=== PATIENT | male | born 1955 | race Caucasian/White ===

== ENCOUNTER 2023-01-07 08:35 | Observation (INO) ==
[2023-01-07] MEDS ORDERED: SODIUM CHLORIDE 0.9% 1,000 ML IV STA (08:43)
--- NOTE | 2023-01-07 08:47 | Emergency Department Note ---
History of Present Illness General Chief complaint: Abdominal Pain Stated complaint: ABD PAIN Time Seen by Provider: 01/07/23 08:37 History of Present Illness Maximum Pain Intensity: 6 67-year-old male presents emergency department with an onset of diffuse abdominal pain that started at 7 PM last evening. Patient denies any nausea vomiting states some loose stools reportedly they may have been black. Patient denies any fever or anorexia. Patient did take a Tylenol last evening without any relief. Patient denies back pain denies generalized weakness malaise or recent infection. Patient states that the abdominal pain is diffuse in nature it is dull crampy and has been persistent for the past 14 hours. Home Medications Medication Instructions Recorded Confirmed Type Fish Oil ([place]-3) 1 cap PO DAILY ##0 07/30/10 History Multivitamin 1 tab PO DAILY ##0 07/30/10 History OMEPRAZOLE (PRILOSEC) 20 mg PO DAILY ##0 07/30/10 History CARVEDILOL (COREG) 6.25 mg PO BID #0 tabs 10/16/13 History FELODIPINE (PLENDIL ER) 10 mg PO DAILY #0 tabs 10/16/13 History Lisinopril/Hctz (Zestoretic 2 tabs PO DAILY #0 tabs 10/16/13 History 20MG/12.5MG) SIMVASTATIN (ZOCOR) 20 mg PO QPM #0 tabs 10/16/13 History ASPIRIN (ASPIRIN EC) 81 mg PO DAILY ##0 10/11/14 History Fluoxetine (Prozac) 40 mg PO DAILY #0 caps 10/11/14 History Allergies Allergy/AdvReac Type Severity Reaction Status Date / Time No Known Allergies Allergy Unverified 10/16/13 09:54 Past Med/Surg History Social History Smoking Status: Former smoker Preferred Language: Paraguayan Feels Safe at Home: Yes Immunizations: Past medical history is reviewed in the chart, past surgical history patient denies any abdominal surgery Review of Systems A total of 10 systems reviewed and were otherwise negative Gastrointestinal: + abdominal pain Physical Exam Vital Signs Vital Signs - 24 hr 01/07/23 08:35 01/07/23 08:50 01/07/23 08:50 Temperature 36.6 C Temperature Source Temporal Artery Scan Pulse Rate 73 66 Pulse Rate [Apical] 68 Pulse Rhythm Regular Respiratory Rate 16 13 20 Respiratory Effort / Characteristics Non-Labored Respiratory Depth Normal Blood Pressure 139/80 Blood Pressure [Right Arm] 143/82 H Blood Pressure Mean 99 Blood Pressure Mean [Right Arm] 102 Pulse Oximetry 96 94 95 Oxygen Delivery Method Room Air Room Air Sepsis Recent Fever Within 48 Hours No Sepsis New/Unexplained Change in Mental Status N/A Sepsis Action Taken by Nursing No Action Required 01/07/23 08:51 01/07/23 11:24 Temperature Temperature Source Pulse Rate 69 Pulse Rate [Apical] 64 Pulse Rhythm Respiratory Rate 16 Respiratory Effort / Characteristics Non-Labored Respiratory Depth Normal Blood Pressure Blood Pressure [Right Arm] 160/85 H Blood Pressure Mean Blood Pressure Mean [Right Arm] 110 Pulse Oximetry 96 Oxygen Delivery Method Room Air Sepsis Recent Fever Within 48 Hours Sepsis New/Unexplained Change in Mental Status Sepsis Action Taken by Nursing GENERAL: Patient is awake alert in no acute distress patient is resting comfortably and showing no signs of anxiety EYES: The conjunctivae are clear. The pupils are round and reactive. EARS, NOSE, MOUTH AND THROAT: The nose is without any evidence of any deformity. Mucous membranes are moist. Tongue is midline. NECK: The neck is nontender and supple. RESPIRATORY: Normal respiratory effort is noted there is no evidence of wheezing rhonchi or rales CARDIOVASCULAR: Regular rate and rhythm noted there no murmurs rubs or gallops normal S1 normal S2. GASTROINTESTINAL: The abdomen is soft. Abdomen is nontender. No rebound rigidity or guarding; there are bowel sounds present BACK: No midline tenderness or or step-off noted range of motion in flexion extension as well as rotation no signs of muscle spasm noted MUSCULOSKELETAL/EXTREMITIES: There is no evidence of gross deformity full range of motion is noted in the hips and shoulders. SKIN: There is no obvious evidence of any rash. There are no petechiae, pallor or cyanosis noted. NEUROLOGIC: Patient is awake alert and oriented x3 strength is symmetric Course Reevaluation(s) Reevaluation #1: Patient on repeat examination has mild tenderness in the right lower quadrant. I did speak to him about his diagnosis and the fact that the surgical team will come to evaluate him Time: 10:47 Consultations Consultation #1: Case was discussed with Andria the surgical physician assistant counsel for evaluation for appendicitis Time: 10:47 Administered Medications Piperacillin Sod/Tazobactam Sod (Zosyn) 4.5 gm in 120 mls @ 240 mls/hr IV NOW ONE Stop: 01/07/23 11:45 Last Admin: 01/07/23 11:25 Dose: 240 mls/hr Documented By: DMH Discontinued Medications Sodium Chloride (Nss 1000ml) 1,000 mls @ 999 mls/hr IV .Q1H1M STA Stop: 01/07/23 09:43 Last Admin: 01/07/23 08:54 Dose: 999 mls/hr Documented By: CHASE Cefoxitin Sodium (Mefoxin) 2,000 mg in 60 mls @ 100 mls/hr IV NOW STA Stop: 01/07/23 11:15 Last Admin: 01/07/23 11:21 Dose: Not Given Documented By: GÓMEZ Ioversol (Optiray 320 100ml) 91 ml IV ONCE ONE Stop: 01/07/23 10:08 Last Admin: 01/07/23 10:07 Dose: 91 ml Documented By: JESSICA Medical Decision Making Medical Records Attestation: I reviewed the patient's medical records. Home Medications Current Medication List: was personally reviewed by me Laboratory Data Attestation: I reviewed the patient's lab results. CBC shows a leukocytosis Metabolic panel shows a mild hyperglycemia 01/07/23 08:43 01/07/23 08:55 Lab Results 01/07/23 01/07/23 01/07/23 Range/Units 08:43 08:55 08:55 WBC 12.04 H (4.8-10.8) K/ul RBC 4.56 L (4.70-6.10) M/uL Hgb 14.1 (14.0-18.0) g/dl Hct 39.0 L (42.0-52.0) % MCV 85.5 (80.0-100.0) fL MCH 30.9 (25.0-34.0) pg MCHC 36.2 H (32.0-36.0) g/dL RDW Std Deviation 36.7 (36.4-46.3) fL RDW Coeff of [place] 11.9 (11.5-14.5) % Plt Count 221 (130-400) K/uL MPV 9.6 (9.4-12.4) fL Immature Gran % (Auto) 0.5 % Neut % (Auto) 84.7 % Lymph % (Auto) 5.3 % [place] % (Auto) 9.1 % Eos % (Auto) 0.2 % Baso % (Auto) 0.2 % Neut # (Auto) 10.20 H (1.40-6.50) K/uL Lymph # (Auto) 0.64 L (1.20-3.40) K/uL [place] # (Auto) 1.10 H (0.11-0.59) K/uL Eos # (Auto) 0.02 (0.00-0.50) K/uL Baso # (Auto) 0.02 (0.00-0.20) K/uL Immature Gran # (Auto) 0.06 (0.01-0.20) K/uL PT 10.8 (9.0-12.0) Seconds INR 1.0 (0.9-1.1) Sodium 134 L (136-145) mmol/L Potassium 3.9 (3.5-5.1) mmol/L Chloride 100 (98-107) mmol/L Carbon Dioxide 26 (21-32) mmol/L Anion Gap 8 (3-11) BUN 12 (6-23) mg/dl Creatinine 0.78 (0.6-1.4) mg/dl Est Cr Clr Drug Dosing 112.8 ml/min Est GFR ( Amer) 109.8 ml/min Est GFR (Non-Af Amer) 94.7 ml/min BUN/Creatinine Ratio 15.4 (10-20) Glucose 151 H (70-99(Fasting)) mg/dl Calcium 9.4 (8.6-10.3) mg/dl Total Bilirubin 1.1 H (0.2-1.0) mg/dl AST 19 (13-39) U/L ALT 25 (7-52) U/L Alkaline Phosphatase 73 (34-104) U/L Total Protein 7.0 (6.0-8.3) gm/dl Albumin 4.5 (3.4-5.0) gm/dl Globulin 2.5 (2.5-4.0) gm/dl Albumin/Globulin Ratio 1.8 (0.9-2) Lipase 15 (11-82) U/L Urine Color Urine Appearance (Clear) Urine pH (4.5-7.5) Ur Specific [place] (1.000-1.030) Urine Protein (Negative) Urine Glucose (UA) (Negative) Urine Ketones (Negative) Urine Blood (Negative) Urine Nitrite (Negative) Urine Bilirubin (Negative) Urine Urobilinogen (Negative) Ur Leukocyte Esterase (Negative) Blood Type Antibody Screen 01/07/23 01/07/23 Range/Units 09:24 10:25 WBC (4.8-10.8) K/ul RBC (4.70-6.10) M/uL Hgb (14.0-18.0) g/dl Hct (42.0-52.0) % MCV (80.0-100.0) fL MCH (25.0-34.0) pg MCHC (32.0-36.0) g/dL RDW Std Deviation (36.4-46.3) fL RDW Coeff of [place]ette (11.5-14.5) % Plt Count (130-400) K/uL MPV (9.4-12.4) fL Immature Gran % (Auto) % Neut % (Auto) % Lymph % (Auto) % [place] % (Auto) % Eos % (Auto) % Baso % (Auto) % Neut # (Auto) (1.40-6.50) K/uL Lymph # (Auto) (1.20-3.40) K/uL [place] # (Auto) (0.11-0.59) K/uL Eos # (Auto) (0.00-0.50) K/uL Baso # (Auto) (0.00-0.20) K/uL Immature Gran # (Auto) (0.01-0.20) K/uL PT (9.0-12.0) Seconds INR (0.9-1.1) Sodium (136-145) mmol/L Potassium (3.5-5.1) mmol/L Chloride (98-107) mmol/L Carbon Dioxide (21-32) mmol/L Anion Gap (3-11) BUN (6-23) mg/dl Creatinine (0.6-1.4) mg/dl Est Cr Clr Drug Dosing ml/min Est GFR ( Amer) ml/min Est GFR (Non-Af Amer) ml/min BUN/Creatinine Ratio (10-20) Glucose (70-99(Fasting)) mg/dl Calcium (8.6-10.3) mg/dl Total Bilirubin (0.2-1.0) mg/dl AST (13-39) U/L ALT (7-52) U/L Alkaline Phosphatase (34-104) U/L Total Protein (6.0-8.3) gm/dl Albumin (3.4-5.0) gm/dl Globulin (2.5-4.0) gm/dl Albumin/Globulin Ratio (0.9-2) Lipase (11-82) U/L Urine Color Yellow Urine Appearance Clear (Clear) Urine pH 7.0 (4.5-7.5) Ur Specific [place] 1.021 (1.000-1.030) Urine Protein Negative (Negative) Urine Glucose (UA) Negative (Negative) Urine Ketones Negative (Negative) Urine Blood Negative (Negative) Urine Nitrite Negative (Negative) Urine Bilirubin Negative (Negative) Urine Urobilinogen Negative (Negative) Ur Leukocyte Esterase Negative (Negative) Blood Type O Positive Antibody Screen NEGATIVE Imaging Data Attestation: I personally reviewed and interpreted this imaging study as follows: Radiologist's Impression: Abdomen/Pelvis CT 01/07/23 08:[address] WITH IV CONTRAST CT DOSE: 1377.49 mGy.cm HISTORY: Generalized abdominal pain. TECHNIQUE: Multiaxial CT images of the abdomen and pelvis were performed following the use of intravenous contrast. A dose lowering technique was utilized adhering to the principles of ALARA. COMPARISON STUDY: None. FINDINGS: Groundglass densities within the lungs posteriorly likely represent mild dependent change. No pneumoperitoneum. No pneumatosis. No acute fractures. There is a punctate gallstone noted. No gallbladder wall thickening. The liver, spleen, adrenal glands, pancreas, and kidneys are within normal limits. A subcentimeter hypodense lesion within the left kidney and at the right hepatic dome are technically too small to characterize but statistically represent cysts. No hydronephrosis. The main portal vein is patent. No retroperitoneal lymphadenopathy. Normal caliber abdominal aorta. There is a tiny fat-containing umbilical hernia. Small fat-containing right inguinal hernia. The bladder is unremarkable. The prostate gland is top normal in size. No pelvic free fluid or pelvic lymphadenopathy. Colonic diverticulosis. No evidence for acute diverticulitis. There is a thick-walled, fluid-filled, dilated appendix measuring up to 13 mm with periappendiceal fat stranding/edema. This is consistent with acute appendicitis. No perforation or abscess identified at this time. There is a 3 mm appendicolith within the appendix on image 230. IMPRESSION: 1. Acute appendicitis. 2. Cholelithiasis. No gallbladder wall thickening. 3. Colonic diverticulosis. 4. Additional findings as described above. ACT 112: Negative or not required by law. Electronically signed by: Nii Sims M.D. 01/07/2023 10:22 AM ECG Data Attestation: I personally reviewed and interpreted this ECG as follows: Additional Comments: EKG interpreted by me normal sinus rhythm rate of 66 normal intervals normal axis no obvious ST segment elevation or depression Telemetry was ordered by me, interpreted as normal sinus rhythm rate of 66 MDM Narrative Medical decision making differential diagnosis includes gastritis, gastroenteritis, pancreatitis, upper GI bleed, diverticulitis, bowel obstruction, constipation, electrolyte abnormality Plan is to check labs, CT, give IV fluids Patient states he takes a aspirin 3 times a week External medical records were reviewed by me Patient has appendicitis on CT, patient was started on IV antibiotics, the case was discussed with the surgical service for evaluation Impression & Plan Acute appendicitis Discharge Plan Visit Data Chief Complaint: Abdominal Pain Stated Complaint: ABD PAIN ED Provider: [place] Discharge Problem: Acute appendicitis Patient Disposition: Admitted As Inpatient Forms Stand Alone Forms: My [facility] Prescriptions Prescriptions: No Action Fish Oil ([place]-3) 1 EA capsule 1 cap PO DAILY Qty: 0 Multivitamin tablet 1 tab PO DAILY Qty: 0 OMEPRAZOLE (PRILOSEC) 20 MG CONTR REL CAP 20 mg PO DAILY Qty: 0 CARVEDILOL (COREG) 6.25 MG tablet 6.25 mg PO BID Qty: 0 FELODIPINE (PLENDIL ER) 10 MG tablet 10 mg PO DAILY Qty: 0 Lisinopril/Hctz (Zestoretic 20MG/12.5MG) tablet 2 tabs PO DAILY Qty: 0 SIMVASTATIN (ZOCOR) 20 MG tablet 20 mg PO QPM Qty: 0 ASPIRIN (ASPIRIN EC) 81 MG tablet 81 mg PO DAILY Qty: 0 Fluoxetine (Prozac) 40 MG capsule 40 mg PO DAILY Qty: 0 Referrals Referrals: Kane Soriano MD [Physician] -
[2023-01-07 09:20] LABS: Basophils # (auto) 0.02 K/uL (0.00-0.20); Basophils % (auto) 0.2 %; Eosinophils # (auto) 0.02 K/uL (0.00-0.50); Eosinophils % (auto) 0.2 %; Hemoglobin 14.1 g/dl (14.0-18.0); Immature Granulocytes # (auto) 0.06 K/uL (0.01-0.20); Immature Granulocytes % (auto) 0.5 %; Lymphocytes # (auto) 0.64 K/uL (1.20-3.40); Lymphocytes % (auto) 5.3 %; Mean Corpuscular Hemoglobin 30.9 pg (25.0-34.0); Mean Corpuscular Hgb Conc 36.2 g/dL (32.0-36.0); Mean Corpuscular Volume 85.5 fL (80.0-100.0); Mean Platelet Volume 9.6 fL (9.4-12.4); Monocytes % (auto) 9.1 %; Neutrophils % (auto) 84.7 %; Platelet Count 221 K/uL (130-400); RDW Coefficient of Variation 11.9 % (11.5-14.5); RDW Standard Deviation 36.7 fL (36.4-46.3); Red Blood Count 4.56 M/uL (4.70-6.10); White Blood Count 12.04 K/ul (4.8-10.8)
[2023-01-07 09:25] LABS: Prothrombin Time 10.8 Seconds (9.0-12.0)
[2023-01-07 09:30] LABS: Albumin Globulin Ratio 1.8 (0.9-2); Albumin Level 4.5 gm/dl (3.4-5.0); BUN Creatinine Ratio 15.4 (10-20); Bilirubin,Total 1.1 mg/dl (0.2-1.0); Calcium 9.4 mg/dl (8.6-10.3); Creatinine Clr Calc Pharmacy 112.8 ml/min; Est GFR (African American) 109.8 ml/min; Est GFR (Non-African American) 94.7 ml/min; Globulin 2.5 gm/dl (2.5-4.0); Potassium 3.9 mmol/L (3.5-5.1)
[2023-01-07] MEDS ORDERED: OPTIRAY 320 100ml IV ONE (10:07)
--- NOTE | 2023-01-07 10:24 | CT Scan Report ---
ABDOMEN AND PELVIS CT WITH IV CONTRAST CT DOSE: 1377.49 mGy.cm HISTORY: Generalized abdominal pain. TECHNIQUE: Multiaxial CT images of the abdomen and pelvis were performed following the use of intrave nous contrast. A dose lowering technique was utilized adhering to the principles of ALARA. COMPARISON STUDY: None. FINDINGS: Groundglass densities within the lungs posteriorly likely represent mild dependent change. No pneumoperitoneum. No pneumatosis. No acute fractures. There is a punctate gallstone noted. No gall bladder wall thickening. The liver, spleen, adrenal glands, pancreas, and kidneys are within normal l imits. A subcentimeter hypodense lesion within the left kidney and at the right hepatic dome are tech nically too small to characterize but statistically represent cysts. No hydronephrosis. The main port al vein is patent. No retroperitoneal lymphadenopathy. Normal caliber abdominal aorta. There is a tin y fat-containing umbilical hernia. Small fat-containing right inguinal hernia. The bladder is unremar kable. The prostate gland is top normal in size. No pelvic free fluid or pelvic lymphadenopathy. [place] ami diverticulosis. No evidence for acute diverticulitis. There is a thick-walled, fluid-filled, dila larissa appendix measuring up to 13 mm with periappendiceal fat stranding/edema. This is consistent with acute appendicitis. No perforation or abscess identified at this time. There is a 3 mm appendicolith within the appendix on image 230. IMPRESSION: 1. Acute appendicitis. 2. Cholelithiasis. No gallbladder wall thickening. 3. Colonic diverticulosis. 4. Additional findings as described above. ACT 112: Negative or not required by law. Electronically signed by: Nii Sims M.D. 01/07/2023 10:22 AM
[2023-01-07] MEDS ORDERED: cefOXitin 2,000 MG/60 ML BAG IV STA (10:40)
[2023-01-07 10:45] LABS: Appearance Urine Clear (Clear); Bilirubin Urine Negative (Negative); Blood Urine Negative (Negative); Color Urine Yellow; Glucose Urine UA Negative (Negative); Ketones Urine Negative (Negative); Leukocyte Esterase Urine Negative (Negative); Nitrite Urine Negative (Negative); Protein Urine Negative (Negative); Specific Gravity Urine 1.021 (1.000-1.030); Urobilinogen Urine Negative (Negative)
--- NOTE | 2023-01-07 10:58 | History & Physical Report ---
Date of Service January 07, 2023 Assessment & Plan (1) Acute appendicitis: Plan: This is a 67y M with a PMH of HTN, borderline DM, depression, who presents to the [facility] ED on 01/07/23 with complaints of abdominal pain that started yesterday evening. Pain mostly located in the RLQ. In the ER a CT a/p was performed that revealed a thick-walled, fluid-filled, dilated appendix measuring up to 13 mm with periappendiceal fat stranding/edema, concerning for acute appendicitis. No perforation or abscess identified at this time. There is a 3 mm appendicolith. WBC 12, Hbg 14, Cr 0.7. Vitals are stable and patient afebrile. On exam abdomen is soft with TTP in the RLQ. Exam, history, imaging all consistent with acute appendicitis. We will plan on taking the patient to the OR for a laparoscopic appendectomy today. Keep NPO with IVF and start IV abx. Will likely admit for overnight observation. History of Present Illness Primary Care Provider: Miky Phillips MD This is a 67y M with a PMH of HTN, borderline DM, depression, who presents to the [facility] ED on 01/07/23 with complaints of abdominal pain. Pain started last night mostly generalized abdomen felt like gas/bloating, now located in the RLQ. Denies fevers/chills, vomiting. + mild nausea. In the ER a CT a/p was performed that revealed a thick-walled, fluid-filled, dilated appendix measuring up to 13 mm with periappendiceal fat stranding/edema, concerning for acute appendicitis. No perforation or abscess identified at this time. There is a 3 mm appendicolith. No CP/SOB, urinary issues. Does have history of a colonoscopy. History of colon ca in grandfather. No prior abdominal surgical history. Last ate some leftovers (shrimp fettuccine) yesterday evening and had some water during the night/this AM. Allergies Allergy/AdvReac Type Severity Reaction Status Date / Time No Known Allergies Allergy Unverified 10/16/13 09:54 Home Medications Medication Instructions Recorded Confirmed Type Fish Oil ([place]-3) 1 cap PO DAILY ##0 07/30/10 History Multivitamin 1 tab PO DAILY ##0 07/30/10 History OMEPRAZOLE (PRILOSEC) 20 mg PO DAILY ##0 07/30/10 History CARVEDILOL (COREG) 6.25 mg PO BID #0 tabs 10/16/13 History FELODIPINE (PLENDIL ER) 10 mg PO DAILY #0 tabs 10/16/13 History Lisinopril/Hctz (Zestoretic 2 tabs PO DAILY #0 tabs 10/16/13 History 20MG/12.5MG) SIMVASTATIN (ZOCOR) 20 mg PO QPM #0 tabs 10/16/13 History ASPIRIN (ASPIRIN EC) 81 mg PO DAILY ##0 10/11/14 History Fluoxetine (Prozac) 40 mg PO DAILY #0 caps 10/11/14 History Past Med/Surg History Social History Smoking Status: Former smoker Preferred Language: Israeli Feels Safe at Home: Yes Review of Systems Constitutional: no fever and no chills Respiratory: no dyspnea Cardiovascular: no chest pain Gastrointestinal: + abdominal pain (RLQ), + bloating and + nausea (mild last night); no vomiting Genitourinary: no problem reported (no urinary complaints) Physical Exam Physical Exam: awake/alert, no distress Respiratory: normal respiratory effort Cardiovascular: Rate/Rhythm: regular rate and regular rhythm Gastrointestinal (Abdomen): Percussion/Palpation: + abdomen tender (ttp in the RLQ) and abdomen soft Results & Data Results & Data Vital Signs (Past 12 Hours) Vital Signs Temp Pulse Pulse Resp BP BP Pulse Ox 01/07/23 08:51 69 01/07/23 08:50 66 20 95 01/07/23 08:50 68 13 143/82 H 94 01/07/23 08:35 36.6 C 73 16 139/80 96 O2 Del Method 01/07/23 08:51 01/07/23 08:50 Room Air 01/07/23 08:50 Room Air 01/07/23 08:35 Diagnostic Findings ABDOMEN AND PELVIS CT WITH IV CONTRAST CT DOSE: 1377.49 mGy.cm HISTORY: Generalized abdominal pain. TECHNIQUE: Multiaxial CT images of the abdomen and pelvis were performed following the use of intravenous contrast. A dose lowering technique was utilized adhering to the principles of ALARA. COMPARISON STUDY: None. FINDINGS: Groundglass densities within the lungs posteriorly likely represent mild dependent change. No pneumoperitoneum. No pneumatosis. No acute fractures. There is a punctate gallstone noted. No gallbladder wall thickening. The liver, spleen, adrenal glands, pancreas, and kidneys are within normal limits. A subcentimeter hypodense lesion within the left kidney and at the right hepatic dome are technically too small to characterize but statistically represent cysts. No hydronephrosis. The main portal vein is patent. No retroperitoneal lymphadenopathy. Normal caliber abdominal aorta. There is a tiny fat-containing umbilical hernia. Small fat-containing right inguinal hernia. The bladder is unremarkable. The prostate gland is top normal in size. No pelvic free fluid or pelvic lymphadenopathy. Colonic diverticulosis. No evidence for acute diverticulitis. There is a thick-walled, fluid-filled, dilated appendix me asuring up to 13 mm with periappendiceal fat stranding/edema. This is consistent with acute appendicitis. No perforation or abscess identified at this time. There is a 3 mm appendicolith within the appendix on image 230. IMPRESSION: 1. Acute appendicitis. 2. Cholelithiasis. No gallbladder wall thickening. 3. Colonic diverticulosis. 4. Additional findings as described above. ACT 112: Negative or not required by law. Electronically signed by: Nii Sims M.D. 01/07/2023 10:22 AM Supervising Physician Co-Signing Physician Notes I have seen and examined this patient with the surgical PA. I have reviewed the CT images and agree with the diagnosis. The patient will be taken to the operating room for a laparoscopic appendectomy. The details of the procedure have been explained to the patient including the risks and benefits. He expressed understanding and all of his questions were answered. Consent was obtained. NPO, IVF, Iv antibiotics being initiated. PG Care Time/CCT Total # of Minutes Spent Total Time Spent with Patient: Total time spent is greater than 50% in coordination of care (as documented) at patient's floor/unit and/or counseling patient: Coding Level of Care Code 89979 INT INP/OBS CARE 40MIN Diagnoses Acute appendicitis K35.80
[2023-01-07] MEDS ORDERED: ATROPINE SULFATE 0.1 MG/ML 10ML SYR IV PRN (11:11)
[2023-01-07] MEDS ORDERED: fentaNYL citrate PF 100 MCG/2 ML VIAL IV PRN (11:11)
[2023-01-07] MEDS ORDERED: ONDANSETRON INJ 2 MG/ML 2 ML VIAL IV PRN ×2 (11:11→14:53)
[2023-01-07] MEDS ORDERED: ePHEDrine sulfate 50 MG/ML AMP IV PRN (11:11)
[2023-01-07] MEDS ORDERED: PIPERACILLIN/TAZOBACTAM 4.5 GM/120 ML BAG IV ONE (11:16)
[2023-01-07] MEDS ORDERED: LIDOCAINE 2% 2 ML VIAL/AMP(20MG/ML) INFIL ONE (11:52)
[2023-01-07] MEDS ORDERED: ONDANSETRON INJ 2 MG/ML 2 ML VIAL ONE (11:52)
[2023-01-07] MEDS ORDERED: PROPOFOL IV EMULSION 10 MG/ML 20 ML VIAL IV ONE (11:52)
[2023-01-07] MEDS ORDERED: fentaNYL citrate PF 100 MCG/2 ML VIAL ONE (11:52)
--- NOTE | 2023-01-07 12:21 | Anesthesiology Consultation ---
Date of Service January 07, 2023 Assessment & Plan Chart Review Chart Review: Acceptable Risk for Surgery Consults Requested none ASA [id number] Proposed Anesthesia Anesthesia Type: General Risk / Benefits Reviewed With: PT / POA / Parent / Guardian, Accepts Plan and Informed Consent Obtained History Surgery Operation Date: 01/07/23 13:00 Proposed Procedures p Laparoscopic Appendectomy - Liliya Kiser, Height/Weight Height: 6 ft 3 in Weight: 100.3 kg Allergies Allergy/AdvReac Type Severity Reaction Status Date / Time No Known Allergies Allergy Unverified 10/16/13 09:54 Medications Home Medications Medication Instructions Recorded Confirmed Last Taken Fish Oil ([place]-3) 1 cap PO DAILY ##0 07/30/10 Unknown Multivitamin 1 tab PO DAILY ##0 07/30/10 Unknown OMEPRAZOLE (PRILOSEC) 20 mg PO DAILY ##0 07/30/10 Unknown CARVEDILOL (COREG) 6.25 mg PO BID #0 tabs 10/16/13 Unknown FELODIPINE (PLENDIL ER) 10 mg PO DAILY #0 tabs 10/16/13 Unknown Lisinopril/Hctz (Zestoretic 2 tabs PO DAILY #0 tabs 10/16/13 Unknown 20MG/12.5MG) SIMVASTATIN (ZOCOR) 20 mg PO QPM #0 tabs 10/16/13 Unknown ASPIRIN (ASPIRIN EC) 81 mg PO DAILY ##0 10/11/14 Unknown Fluoxetine (Prozac) 40 mg PO DAILY #0 caps 10/11/14 Unknown NPO Date Last Intake of Fluids: 01/07/23 Time Last Intake of Fluids: 00:00 Date Last Intake of Solids: 01/07/23 Time Last Intake of Solids: 00:00 Exercise / Class Metabolic Activity II 4-5 Yardwork/Stairs/Walk up hill Past Anesthesia History No Hx of Anesthesia Complications and No Family Hx of Anesthesia Complications History of PONV No Hx of PONV and No Hx of Motion Sickness Social History Smoking Status: Former smoker Physical Exam Vital Signs Last Vital Signs Temp 97.9 F 01/07/23 08:35 Pulse 66 01/07/23 12:03 Resp 16 01/07/23 12:03 BP 144/86 H 01/07/23 12:03 Pulse Ox 98 01/07/23 12:03 O2 Del Method Room Air 01/07/23 12:03 ENMT Mouth: no dentition abnormality Thyromental Distance: > or= 3.5 Finger Breadths Mallampati Class: II Neck normal visual inspection Respiratory normal respiratory effort Auscultation: lungs clear to auscultation bilaterally Cardiovascular Rate/Rhythm: regular rate and regular rhythm Heart Sounds: + murmur (2/6 JADE) Testing Laboratory Results 01/07/23 08:43 01/07/23 08:55 PT 10.8 Seconds (9.0-12.0) 01/07/23 08:55 INR 1.0 (0.9-1.1) 01/07/23 08:55 Urine Color Yellow 01/07/23 10:25 Urine Appearance Clear (Clear) 01/07/23 10:25 Urine pH 7.0 (4.5-7.5) 01/07/23 10:25 Ur Specific [place] 1.021 (1.000-1.030) 01/07/23 10:25 Urine Protein Negative (Negative) 01/07/23 10:25 Urine Glucose (UA) Negative (Negative) 01/07/23 10:25 Urine Ketones Negative (Negative) 01/07/23 10:25 Urine Nitrite Negative (Negative) 01/07/23 10:25 Ur Leukocyte Esterase Negative (Negative) 01/07/23 10:25 Blood Type O Positive 01/07/23 09:24 Antibody Screen NEGATIVE 01/07/23 09:24 Electrocardiogram Date: 01/07/23 Findings: + NSR @ (66 bpm)
[2023-01-07] MEDS ORDERED: ROCURONIUM BROMIDE 10 MG/ML 5 ML VIAL IV ONE (12:45)
[2023-01-07] MEDS ORDERED: BUPIVACAINE/EPINEPHRINE 0.5% MPF 1:200,000 30 ML VIAL ONE (12:45)
[2023-01-07] MEDS ORDERED: DEXAMETHASONE SOD INJ 4 MG/ML VIAL ONE (12:45)
[2023-01-07] MEDS ORDERED: SUGAMMADEX SODIUM 200 MG/2 ML VIAL IV ONE (13:03)
--- NOTE | 2023-01-07 13:46 | Operative Report ---
PG Post Operative Report Pre & Post Diagnosis Operation Date: 01/07/23 13:00 Pre-Op Diagnosis: Appendicitis Post-Op Diagnosis: Appendicitis I identified the patient and participated in the time-out.: Yes Procedure Operation Date: 01/07/23 13:00 Actual Procedures p Laparoscopic Appendectomy(Not Applicable) - Liliya Kiser DO Surgeon Liliya Kiser DO Formula Room Worker FRANCHESCA Sagastume Estimated Blood Loss 3 Findings Consistent with Post-Op Diagnosis Specimens Appendix Drains None Anesthesia Type General Complications None Indications Acute appendicitis Description of Procedure The patient was brought back to the operating room and placed on the operating room table in supine position. He was connected to oxygen and cardiac monitoring and SCDs were applied to bilateral lower extremities. General anesthesia was administered and a secure airway was obtained. The abdomen was prepped and draped in typical sterile fashion and a timeout was conducted. Local anesthetic was injected just inferior to the umbilicus and a small stab incision was made with an 11 blade. A Veress needle was used to gain access to the intra-abdominal space. Pneumoperitoneum was achieved with insufflation of CO2 to a goal pressure of 15 mmHg. Once this was achieved a 5 mm laparoscope was used to insert a 5 mm trocar under direct visualization using a Visiport. 2 additional trocars were inserted under direct visualization in the same fashion. A 5 mm trocar was inserted at the suprapubic area and a 12 mm trocar in the left lower quadrant. The appendix was identified at the right lower quadrant densely adhesed to the peritoneal structures and torsed around the base of the cecum with the terminal ileum closely associated. Gentle, gentle dissection was undertaken using alternating blunt dissection with the suction as well as diathermy and a [place] dissector. As the tissues of the mesoappendix were dissected away from the appendix, keeping hemostasis along the way the base of the appendix was able to be indeed torsed and exposed. The base of the appendix was then ligated and transected using a blue loaded Endo OCTAVIO. Diathermy was used to complete dissection of the mesoappendix and appendiceal artery with a bipolar energy device. The appendix was placed in an Endo Catch bag and removed from the left lower quadrant where the skin incision had to be enlarged to be able to remove the appendix. The appendix was placed in a labeled container and sent to pathology for further analysis. The right lower quadrant was irrigated and s uctioned and inspected for hemostasis and hemostasis was satisfactory. The pelvis was checked for fluids. A small amount of fluid was suctioned away. CO2 insufflation was discontinued and pneumoperitoneum was evacuated. All instruments and trocars removed. The fascia at the left lower quadrant incision was closed with 0 Vicryl suture. Additional local anesthetic was injected at all incision sites. The skin was closed with 4-0 Vicryl suture. The skin was sealed with Dermabond. The patient tolerated the procedure well. He was awakened from anesthesia and transferred to recovery in stable condition. I attest to the content of the Intraoperative Record and any orders documented therein. Any exceptions are noted below.
[2023-01-07] MEDS ORDERED: MoRPHine SULFATE 2 MG/ML CARP IV PRN (14:53)
[2023-01-07] MEDS ORDERED: MoRPHine SULFATE 4 MG/ML 1 ML CARP\\VIAL IV PRN (14:53)
[2023-01-07] MEDS ORDERED: oxyCODONE HCL IR 5 MG TAB (IMMEDIATE RELEASE) PO PRN ×2 (14:53)
--- NOTE | 2023-01-07 14:54 | Anesthesiology Progress Note ---
Date of Service January 07, 2023 Anesthesia Post Procedure Vital Signs Vital Signs: Temp Pulse Pulse Resp BP BP Pulse Ox 01/07/23 14:30 68 15 111/64 92 01/07/23 14:20 98.6 F 69 18 113/61 92 01/07/23 14:10 70 18 112/60 92 01/07/23 14:00 69 20 117/64 95 01/07/23 13:51 98.1 F 73 20 117/58 L 95 01/07/23 12:03 66 16 144/86 H 98 01/07/23 11:24 64 16 160/85 H 96 01/07/23 08:51 69 01/07/23 08:50 66 20 95 01/07/23 08:50 68 13 143/82 H 94 01/07/23 08:35 97.9 F 73 16 139/80 96 O2 Del Method O2 Flow Rate 01/07/23 14:30 Room Air 01/07/23 14:20 Room Air 01/07/23 14:10 Room Air 01/07/23 14:00 Oxymask 7 01/07/23 13:51 Oxymask 7 01/07/23 12:03 Room Air 01/07/23 11:24 Room Air 01/07/23 08:51 01/07/23 08:50 Room Air 01/07/23 08:50 Room Air 01/07/23 08:35 Pain Intensity Lower Abdomen: Pain Intensity: 4 Transfer of Care Handoff Completed per policy Notes Mental Status: alert / awake / arousable and participated in evaluation Patient Amnestic to Procedure: Yes Nausea / Vomiting: adequately controlled Pain: adequately controlled Airway Patency, RR, SpO2: stable & adequate BP & HR: stable & adequate Hydration State: stable & adequate Anesthetic Complications: no major complications apparent and Pt Satisfied with anesthetic care
[2023-01-07] MEDS: LACTATED RINGER'S 1,000 ML IV SCH (16:58)
[2023-01-07] MEDS: PIPERACILLIN/TAZOBACTAM 4.5 GM in DEXTROSE 5% 100 ML IV SCH (17:36)
[2023-01-07] MEDS: ACETAMINOPHEN 1,000 MG/100 ML VIAL IV PRN (20:15)
[2023-01-07] MEDS: carvediloL 6.25 MG TAB PO SCH (20:15)
--- NOTE | 2023-01-07 23:36 | Electrocardiogram Report ---
Test Reason : Blood Pressure : / mmHG Vent. Rate : 066 BPM Atrial Rate : 066 BPM P-R Int : 172 ms QRS Dur : 090 ms QT Int : 426 ms P-R-T Axes : 051 019 030 degrees QTc Int : 446 ms Normal sinus rhythm Possible Left atrial enlargement Borderline ECG When compared with ECG of 30-JUL-2010 14:34, No significant change was found Confirmed by Vinicio Edmond ([id number]) on 01/07/2023 11:36:32 PM Referred By: REFERRED SELF Confirmed By:Vinicio Edmond
[2023-01-08] MEDS: PIPERACILLIN/TAZOBACTAM 4.5 GM in DEXTROSE 5% 100 ML IV SCH ×2 (02:11→10:02)
[2023-01-08 07:33] LABS: Basophils # (auto) 0.01 K/uL (0.00-0.20); Basophils % (auto) 0.1 %; Eosinophils # (auto) 0.01 K/uL (0.00-0.50); Eosinophils % (auto) 0.1 %; Hematocrit (blood only) 34.8 % (42.0-52.0); Hemoglobin 12.1 g/dl (14.0-18.0); Immature Granulocytes # (auto) 0.05 K/uL (0.01-0.20); Immature Granulocytes % (auto) 0.5 %; Lymphocytes % (auto) 8.3 %; Mean Corpuscular Hemoglobin 30.7 pg (25.0-34.0); Mean Corpuscular Hgb Conc 34.8 g/dL (32.0-36.0); Mean Corpuscular Volume 88.3 fL (80.0-100.0); Mean Platelet Volume 9.7 fL (9.4-12.4); Monocytes # (auto) 0.92 K/uL (0.11-0.59); Monocytes % (auto) 8.5 %; Neutrophils # (auto) 8.92 K/uL (1.40-6.50); Neutrophils % (auto) 82.5 %; Platelet Count 179 K/uL (130-400); RDW Coefficient of Variation 12.2 % (11.5-14.5); RDW Standard Deviation 39.5 fL (36.4-46.3); Red Blood Count 3.94 M/uL (4.70-6.10); White Blood Count 10.81 K/ul (4.8-10.8)
[2023-01-08 07:44] LABS: BUN Creatinine Ratio 13.6 (10-20); Calcium 8.7 mg/dl (8.6-10.3); Creatinine Clr Calc Pharmacy 108.7 ml/min; Est GFR (African American) 108.1 ml/min; Est GFR (Non-African American) 93.3 ml/min; Potassium 3.9 mmol/L (3.5-5.1)
[2023-01-08] MEDS: carvediloL 6.25 MG TAB PO SCH (08:42)
[2023-01-08] MEDS: ACETAMINOPHEN 1,000 MG/100 ML VIAL IV PRN (08:49)
[2023-01-08] MEDS ORDERED: FELODIPINE 5 MG TABCR PO SCH (09:00)
[2023-01-08] MEDS ORDERED: FLUoxetine HCL 20 MG CAP PO SCH (09:00)
--- NOTE | 2023-01-08 10:51 | Surgery Progress Note ---
This patient was seen and examined with the surgical PA. I agree with this plan. Date of Service January 08, 2023 Assessment & Plan (1) Acute appendicitis: Plan: POD#1 lap appy WBC 10, Hbg 10. Vitals are stable He is tolerating clears, will advance to fulls Pain controlled, incisions c/d/i Will allow patient to dispo on fulls later today and advance to low fiber at home once he has a BM Dispo instructions reviewed, f/u in clinic with the surgeon in 1-2 weeks. no need for abx at home Admission and Anticipated Discharge Date Admission Date: January 07, 2023 Subjective Pt reports feeling well. Some mild bloating. Overall pain is controlled. he is tolerating clears, no n/v. + flatus Physical Exam Physical Exam: awake/alert, no distress Gastrointestinal (Abdomen): Inspection/Auscultation: + abdominal surgical incision (c/d/i no signs of infection) Percussion/Palpation: + abdomen tender (expected meaghan incisional discomfort to palpation) and abdomen soft Results & Data Vital Signs (Past 12 Hours) Vital Signs Temp Pulse Pulse Resp BP Pulse Ox O2 Del Method 01/08/23 07:35 36.9 C 55 L 14 121/67 93 Room Air 01/08/23 02:43 36.8 C 59 L 16 109/59 L 93 Room Air PG Care Time/CCT Total # of Minutes Spent Total Time Spent with Patient: Total time spent is greater than 50% in coordination of care (as documented) at patient's floor/unit and/or counseling patient: Coding Level of Care Code 96926 Post Operative Follow-Up Diagnoses Acute appendicitis K35.80
[2023-01-08] MEDS: LACTATED RINGER'S 1,000 ML IV SCH (10:53)
== END 2023-01-08 14:26 | disposition home or self-care (01) ==
LOC: ED 08:35 → 3N 12:14 → OR 12:14 → 3N 16:05